=== PATIENT | male | born 1940 | race Caucasian/White ===

== ENCOUNTER 2018-01-03 07:48 | Day surgery (SDC) | payer OTHER ==
[2018-01-02 14:32] VITALS: BMI 29.1
[2018-01-03 09:42] VITALS: TEMP 98
[2018-01-03 10:24] VITALS: BP 121/75; PULSE 69
--- NOTE | 2018-01-06 11:13 | PATH ---
Surgical Pathology Report Patient Name: TRINITY COLE [facility]. Rec. #: [id number] /Age/Gender: 1940 (Age: 77) / M Account: [id number] Location: U-ENDOSCOPY Taken: 01/03/2018 Received: 01/03/2018 Reported: 01/06/2018 Physicians: Jaydon Pope M.D. Specimen(s) Received A: POLYP SIGMOID COLON B: BX PROXIMAL TRANSVERSE COLON POLYP Clinical History Postoperative diagnosis: Diverticulosis, colon polyps Final Diagnosis A. SIGMOID COLON, POLYP, POLYPECTOMY: POLYPOID COLONIC MUCOSA WITH PROMINENT LYMPHOID AGGREGATES. B. PROXIMAL TRANSVERSE COLON, POLYPECTOMY: POLYPOID COLONIC MUCOSA WITH PROMINENT LYMPHOID AGGREGATE. Electronically Signed Johanny Ashford M.D. Gross Description A. Received in formalin, labeled "sigmoid colon polyp" are 2 denson, irregular portions of soft tissue averaging 0.4 cm. in greatest dimension. The specimens are submitted in toto in one cassette. B. Received in formalin, labeled "proximal transverse colon" are 2 denson, irregular portions of soft tissue averaging 0.2 cm. in greatest dimension. The specimens are submitted in toto in one cassette. 01/03/2018 saudi01/03/2018
== END 2018-01-03 10:35 | disposition home or self-care (01) ==
LOC: JASU-ENDO 07:48
PROVIDERS: ATTEND Internal Medicine Gastroenterology
PROC: 0DBL8ZX Excision of Transverse Colon, Via Natural or Artificial Opening Endoscopic, Diagnostic (ICD-10-PCS; 2018-01-03)
PROC: 0DBN8ZX Excision of Sigmoid Colon, Via Natural or Artificial Opening Endoscopic, Diagnostic (ICD-10-PCS; principal; 2018-01-03 09:00)
DX: Z12.11 Encounter for screening for malignant neoplasm of colon (principal); K64.8 Other hemorrhoids; K57.30 Diverticulosis of large intestine without perforation or abscess without bleeding; D12.5 Benign neoplasm of sigmoid colon; D12.3 Benign neoplasm of transverse colon
CPT/HCPCS: 88305-TC